=== PATIENT | male | born 1990 | race Caucasian/White ===

== ENCOUNTER 2019-10-16 19:09 | Emergency (ER) | payer OTHER ==
[~2019-10-16] VITALS: Ht 172.7 cm; Wt 97.5 kg
--- NOTE | 2019-10-16 19:25 | NUR ---
PT AAOX4. AMBULATORY. PT C/O L groin area pain r//t LLQ abdomen since night. placed on monitor and pulse ox. no acute distress.
--- NOTE | 2019-10-16 19:43 | NUR ---
URINE COLLECTED AND SENT TO LAB
--- NOTE | 2019-10-16 19:45 | NUR ---
US AT BEDSIDE
[2019-10-16 19:48] LABS: APPEARANCE,URINE Clear (CLEAR); BILIRUBIN,URINE Negative (NEGATIVE); BLOOD, URINE Negative Ery/uL (NEGATIVE); COLOR,URINE Yellow (YELLOW); KETONES,URINE Negative (NEGATIVE); LEUKOCYTE ESTERASE ,URINE Negative (NEGATIVE); NITRITE, URINE Negative (NEGATIVE); PROTEIN,URINE Negative (NEGATIVE); UGLUCOSE Negative (NEGATIVE); UROBILINOGEN,URINE 0.2 EU/dL (0.2)
--- NOTE | 2019-10-16 20:10 | NUR ---
at bedside for removal of abscess on groin area.
[2019-10-16 20:14] LABS: BASOPHILS % (AUTO) 0.5 % (0.0-2.0); EOSINOPHILS % (AUTO) 1.1 % (0.0-6.0); HEMATOCRIT 44 % (39-51); HEMOGLOBIN 14.7 g/dL (13.5-17.5); LYMPHOCYTES # (AUTO) 1.6 /CMM (0.8-4.8); LYMPHOCYTES % (AUTO) 16.9 % (20.0-44.0); MEAN CORPUSCULAR HGB CONC 34 g/dl (31.0-36.0); MEAN CORPUSCULAR VOLUME 90 fL (80-96); MONOCYTES # (AUTO) 0.9 /CMM (0.1-1.30); MONOCYTES % (AUTO) 10.1 % (2.0-12.0); NEUTROPHILS # (AUTO) 6.6 /CMM (1.8-8.9); NEUTROPHILS % (AUTO) 71.4 % (43.0-81.0); PLATELET COUNT (AUTO) 336 /CMM (150-450); RED BLOOD CELL COUNT(AUTO) 4.87 MIL/uL (4.5-6.0); WHITE BLOOD COUNT (AUTO) 9.2 K/uL (4.3-11.0)
[2019-10-16] MEDS ORDERED: LIDOCAINE 1%-EPI 1:100,000 20 ML VIAL ONE (20:18)
[2019-10-16 20:20] LABS: CALCIUM, SERUM 9.1 mg/dL (8.5-10.1); POTASSIUM 3.9 mmol/L (3.5-5.1)
[2019-10-16] MEDS ORDERED: SULFAMETH/TRIMETH 800/160 MG 1 UDTAB TABLET PO ONE (21:00)
[2019-10-16] MEDS ORDERED: ACETAMINOPHEN ES 500 MG TABLET ONE (21:00)
[2019-10-16] MEDS ORDERED: TDAP [DIPH/PERTUSSIS/TET] 0.5 ML VIAL IM ONE ×2 (21:00)
[2019-10-16] MEDS ORDERED: CEPHALEXIN MONOHYDRATE 500 MG CAPSULE PO ONE ×2 (21:00→21:07)
[2019-10-16] MEDS ORDERED: ACETAMINOPHEN 325 MG TABLET PO ONE (21:00)
[2019-10-16] MEDS ORDERED: SULFAMETH/TRIMETH 800/160 MG 1 UDTAB TABLET ONE (21:07)
--- NOTE | 2019-10-16 21:11 | NUR ---
Patient discharged to home in stable condition. Written and verbal after care instructions given. Patient verbalizes understanding of instruction and RX. PT ambulatory with a steady gait.
[2019-10-16 21:13] VITALS: BP 132/84
== END 2019-10-16 21:14 | disposition home or self-care (01) ==
LOC: ER 19:17
DX: L02.214 Cutaneous abscess of groin (principal); I10 Essential (primary) hypertension; F32.9 Major depressive disorder, single episode, unspecified; F41.9 Anxiety disorder, unspecified
CPT/HCPCS: 10060; 36415; 76870; 80048; 81001; 85025; 87491; 87591; 90471; 90715; 99284; A6403; A6407; J3490; 81000-TC

== ENCOUNTER 2019-10-18 10:50 | Emergency (ER) | payer OTHER ==
[~2019-10-18] VITALS: Ht 172.7 cm; Wt 97.5 kg
[2019-10-18 10:50] VITALS: BP 138/87
== END 2019-10-18 11:26 | disposition home or self-care (01) ==
LOC: ER 10:51
DX: L02.214 Cutaneous abscess of groin (principal); I10 Essential (primary) hypertension; F31.9 Bipolar disorder, unspecified; F41.9 Anxiety disorder, unspecified; Z98.890 Other specified postprocedural states

== ENCOUNTER 2020-04-14 21:54 | Emergency (ER) | payer OTHER ==
[~2020-04-14] VITALS: Ht 172.7 cm; Wt 82.6 kg
--- NOTE | 2020-04-14 22:07 | NUR ---
BIBS FOR C/O ABD PAIN , -N/V/D, VSS
[2020-04-14] MEDS ORDERED: MAG HYDROX/AL HYDROX/SIMETH 30 ML UDC ONE (22:12)
[2020-04-14] MEDS ORDERED: FAMOTIDINE/PF INJ 20 MG/2 ML VIAL IV ONE ×2 (22:12→22:30)
[2020-04-14] MEDS ORDERED: LIDOCAINE VISCOUS 2% UD 15 ML UDC ONE (22:12)
--- NOTE | 2020-04-14 22:18 | NUR ---
BLOOD COLLECTED AND SENT TO LAB
[2020-04-14 22:28] LABS: BASOPHILS # (AUTO) 0.1 /CMM (0.0-0.2); BASOPHILS % (AUTO) 0.8 % (0.0-2.0); EOSINOPHILS % (AUTO) 2.2 % (0.0-6.0); HEMATOCRIT 44 % (39-51); HEMOGLOBIN 14.8 g/dL (13.5-17.5); LYMPHOCYTES # (AUTO) 2.7 /CMM (0.8-4.8); LYMPHOCYTES % (AUTO) 40.6 % (20.0-44.0); MEAN CORPUSCULAR HGB CONC 34 g/dl (31.0-36.0); MEAN CORPUSCULAR VOLUME 89 fL (80-96); MONOCYTES # (AUTO) 0.6 /CMM (0.1-1.30); MONOCYTES % (AUTO) 8.2 % (2.0-12.0); NEUTROPHILS # (AUTO) 3.2 /CMM (1.8-8.9); NEUTROPHILS % (AUTO) 48.2 % (43.0-81.0); PLATELET COUNT (AUTO) 383 /CMM (150-450); RED BLOOD CELL COUNT(AUTO) 4.95 MIL/uL (4.5-6.0); WHITE BLOOD COUNT (AUTO) 6.7 K/uL (4.3-11.0)
[2020-04-14] MEDS ORDERED: LIDOCAINE VISCOUS 2% UD 15 ML UDC MM ONE (22:30)
[2020-04-14] MEDS ORDERED: IV NS 0.9% 500 ML BAG IV ONE (22:30)
[2020-04-14] MEDS ORDERED: MAG HYDROX/AL HYDROX/SIMETH 30 ML UDC PO ONE (22:30)
[2020-04-14 22:39] LABS: CALCIUM, SERUM 8.6 mg/dL (8.5-10.1); CREATININE 1.2 mg/dL (0.6-1.3); POTASSIUM 3.9 mmol/L (3.5-5.1)
[2020-04-14 22:43] LABS: ALBUMIN 4.2 g/dL (3.4-5.0); BILIRUBIN,DIRECT 0.1 mg/dL (0.0-0.2); BILIRUBIN,TOTAL 0.4 mg/dL (0.2-1.0); TOTAL PROTEIN, SERUM 7.4 g/dL (6.4-8.2)
[2020-04-14] MEDS ORDERED: MORPHINE SULFATE INJ 4 MG/ML DISP.SYRIN ONE (22:52)
[2020-04-14] MEDS ORDERED: ONDANSETRON HCL/PF - ER 4 MG/2 ML VIAL IV ONE (23:00)
[2020-04-14] MEDS ORDERED: MORPHINE SULFATE INJ 2 MG/ML DISP.SYRIN IV ONE (23:00)
[2020-04-14] MEDS ORDERED: ONDANSETRON HCL/PF 4 MG/2 ML VIAL ONE (23:00)
--- NOTE | 2020-04-15 00:44 | NUR ---
IV removed. Catheter intact and site benign. Pressure and 4x4 applied to site. No bleeding noted.Patient discharged to home in stable condition. Rx and Written and verbal after care instructions given. Patient verbalizes understanding of instruction.
[2020-04-15 00:47] VITALS: BP 125/75
== END 2020-04-15 00:47 | disposition home or self-care (01) ==
LOC: ER 21:54
DX: I88.0 Nonspecific mesenteric lymphadenitis (principal); I10 Essential (primary) hypertension; F32.9 Major depressive disorder, single episode, unspecified; F41.9 Anxiety disorder, unspecified
CPT/HCPCS: 36415; 74176; 80048; 80076; 83690; 85025; 96374; 96375; 99284; J2270; J2405 ×2; J3490; J7040